=== PATIENT | female | born 1990 | race Asian ===

== ENCOUNTER 2016-08-27 09:26 | Emergency (ER) | payer BC ==
[2016-08-27] MEDS ORDERED: NS 0.9% 1000 ML* 1,000 ML IV ONE (10:36)
[2016-08-27] MEDS ORDERED: Ondansetron INJ* 2 MG/ML VIAL IV ONE (10:36)
--- NOTE | 2016-08-27 10:43 | ED ---
Abdominal Pain/Female - HPI Summary HPI Summary: Pt here w/ 2 day h/o ab pain, nausea and diarrhea. Sudden onset. At first, had repeated bouts of diarrhea - this morning has slowed and has "rolling" pain about every 20-30 minutes. Nausea but was able to eat last night - soup and sushi - did not worsen pain then but pain worse this morning. Denies hematochezia, fever, chills, chest pain, SOB, dysuria, flank pain, vaginal irritation/bleeding. No previous ab surgeries. No new foods, no new meds, no foreign water source. H/o IBS w/ stress - admits she's had stress but not sure if that is what is triggering sx today. - History of Current Complaint Chief Complaint: EDHipPelvisInjury Stated Complaint: ABD PAIN/SENT FROM [facility] Time Seen by Provider: 08/27/16 10:22 Hx Obtained From: Patient Pain Intensity: 3 Allergies/Adverse Reactions: Allergies Allergy/AdvReac Type Severity Reaction Status Date / Time No Known Allergies Allergy Verified 08/27/16 10:04 Home Medications: Home Medications NK [No Home Medications Reported] 08/27/16 [History Confirmed 08/27/16] PMH/Surg Hx/FS Hx/Imm Hx Previously Healthy: Yes Endocrine/Hematology History: Denies: Hx Thyroid Disease GI History: Reports: Hx Irritable Bowel - "no sx in years" Denies: Hx Cirrhosis, Hx Crohn's Disease, Hx Diverticulosis, Hx Gall Bladder Disease, Hx Gastroesophageal Reflux Disease, Hx Gastrointestinal Bleed, Hx Hiatal Hernia, Hx Obstructive Bowel, Hx Ulcer Infectious Disease History: No Infectious Disease History: Denies: Traveled Outside the [place] in Last 30 Days - Social History Alcohol Use: Occasionally Hx Substance Use: No Substance Use Type: Reports: None Hx Tobacco Use: No Smoking Status (MU): Never Smoked Tobacco Review of Systems Constitutional: Negative Negative: Fever, Chills, Fatigue Cardiovascular: Negative Negative: Chest Pain Respiratory: Negative Negative: Shortness Of Breath, Cough Gastrointestinal: Other - see HPI Genitourinary: Negative Musculoskeletal: Negative Skin: Negative Neurological: Negative Positive: Anxious All Other Systems Reviewed And Are Negative: Yes Physical Exam Triage Information Reviewed: Yes Vital Signs On Initial Exam: Initial Vitals Temp Pulse Resp BP Pulse Ox 99.7 F 87 18 109/72 100 08/27/16 09:33 08/27/16 09:33 08/27/16 09:33 08/27/16 09:33 08/27/16 09:33 Vital Signs Reviewed: Yes Appearance: Positive: Well-Appearing, Well-Nourished, Pain Distress - mild at rest on stretcher Skin: Positive: Warm, Dry Head/Face: Positive: Normal Head/Face Inspection Eyes: Positive: Normal, EOMI, Conjunctiva Clear - anicteric sclera ENT: Positive: Hearing grossly normal, Pharynx normal - mucosa moist Neck: Positive: Supple, Nontender Respiratory/Lung Sounds: Positive: Clear to Auscultation, Breath Sounds Present. Negative: Rales, Rhonchi, Wheezes Cardiovascular: Positive: Normal, RRR, S1, S2 Abdomen Description: Positive: No Organomegaly, Soft, Other: - epigastric TTP and Rt sided ab TTP - no rebounding - no lower ab pain Bowel Sounds: Positive: Present Pelvic Exam: Positive: other - deferred Musculoskeletal: Positive: Normal, Strength/ROM Intact Neurological: Positive: Normal, Sensory/Motor Intact Psychiatric: Positive: Anxious - Heriberto Coma Scale Coma Scale Total: 15 Diagnostics - Vital Signs Vital Signs Temp Pulse Resp BP Pulse Ox 08/27/16 10:00 76 108/67 99 08/27/16 09:58 98.9 F 75 16 99/65 99 08/27/16 09:33 99.7 F 87 18 109/72 100 - Laboratory Result Diagrams: 08/27/16 11:17 08/27/16 11:17 Lab Statement: Any lab studies that have been ordered have been reviewed, and results considered in the medical decision making process. Re-Evaluation - Re-Evaluation First Eval Change: Improved Abdominal Pain Fem Course/Dx - Diagnoses Provider Diagnoses: Dehydration, Abdominal pain, Diarrhea Discharge - Discharge Plan Condition: Stable Disposition: HOME Patient Education Materials: Dehydration (ED), Acute Diarrhea (ED), Abdominal Pain (ED) Referrals: [facility] [Outside] Additional Instructions: The definitive source of your abdominal pain and diarrhea were not identified here today. However your exam and pain improved after fluids and nausea medicine. You were found to have slightly depleted magnesium which was replaced. It is encouraged that you drink clear liquids only for the next 24-48 hours - water, gatorade, tanya xiomara, soup broth, etc. If tolerating these well, may advance to soft, bland foods and those which may help form stool (Bananas, Rice, Applesauce, [place]). Follow-up with PCP if symptoms persist. Please provide stool sample if possible. *If pain is worse, return of nausea, fever, chest pain, shortness of breath, vaginal bleeding/discharge or abnormal urination, return to ED
[2016-08-27 11:24] LABS: Urine Bacteria Absent (Absent); Urine Bilirubin Negative (Negative); Urine Glucose Negative (Negative); Urine Nitrite Negative (Negative)
[2016-08-27 11:26] LABS: Hematocrit 45 % (35-47); Hemoglobin 14.8 g/dl (12.0-16.0); Mean Corpuscular HGB Conc 33 g/dl (31-36); Mean Corpuscular Hemoglobin 33 pg (27-31); Mean Corpuscular Volume 98 fL (80-97); Mean Platelet Volume 10 um3 (7.4-10.4); Red Blood Count 4.54 10^6/ul (4.0-5.4); Red Cell Distribution Width 13 % (10.5-15)
[2016-08-27 11:41] LABS: ALT 9 U/L (7-52); AST 13 U/L (13-39); Albumin 4.7 g/dL (3.2-5.2); Alkaline Phosphatase 63 U/L (34-104); Anion Gap 10 mmol/L (2-11); Blood Urea Nitrogen 9 mg/dL (6-24); C Reactive Protein 4.38 mg/L (< 5.00); CO2 Carbon Dioxide 22 mmol/L (22-32); Calcium 9.6 mg/dL (8.6-10.3); Chloride 103 mmol/L (101-111); EGFR African American 134.4 (>60); EGFR Non-African American 104.5 (>60); Globulin 2.6 g/dL (2-4); Glucose 82 mg/dL (70-100); Lipase 14 U/L (11.0-82.0); Magnesium 1.7 mg/dL (1.9-2.7); Potassium 3.3 mmol/L (3.5-5.0); Sodium 135 mmol/L (133-145); Total Protein 7.3 g/dL (6.4-8.9)
[2016-08-27] MEDS ORDERED: Magnesium Oxide TAB* 400 MG PO ONE (11:42)
[2016-08-27 12:22] LABS: TSH (Thyroid Stimulating Horm) 1.28 mcIU/mL (0.34-5.60)
[2016-08-27 14:34] VITALS: BP 112/78
== END 2016-08-27 14:33 | disposition home or self-care (01) ==
LOC: ED 09:26
DX: E86.0 Dehydration (principal); R10.9 Unspecified abdominal pain; R19.7 Diarrhea, unspecified; R11.2 Nausea with vomiting, unspecified
CPT/HCPCS: 36415; 80053; 81003; 81015; 83605; 83690; 83735; 84443; 84702; 85025; 86140; 87086; 96374; 99283; J2405